=== PATIENT | female | born 1975 | race Caucasian/White ===

== ENCOUNTER 2020-07-17 16:19 | Emergency (ER) | payer OTHER, SELFPAY ==
--- NOTE | ~2020-07-17 | XR_ITS ---
EXAMINATION: XR HAND, LEFT CLINICAL INFORMATION: Trauma. Lacerations with metal weather stripper COMPARISON: None TECHNIQUE: Three views of the left hand. FINDINGS: The alignment is normal. There is no fracture, focal lesion, periosteal new bone or opaque foreign body. XR/XR hand LT min 3V IMPRESSION: No fracture, subluxation or opaque foreign body demonstrated
[2020-07-17 17:02] VITALS: BP 157/69; PULSE 96; RESP 16; TEMP 36.6; O2SAT 100; BMI 49.1
[2020-07-17] MEDS: Lidocaine HCl 2 % MPF 5 ML VIAL 10 ML SUBCUT (17:17)
[2020-07-17] MEDS: Diphth,Pertus(ACell),Tet Adult 0.5 ML SYRINGE IM (17:17)
--- NOTE | 2020-07-17 17:53 | ED.WOUNDLAC ---
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 Third being the worst with suspected tendon injury. Fourth and 5th fingers have abrasions. Patient stated that she does not have any other concerning symptoms besides a suspicion of the tendon injury to the 3rd finger. Onset (ago): hour(s) (Within the hour of arrival) Place: home Patient tetanus UTD: No Context: accidental Associated symptoms: pain and unable to move injured part Treatments prior to arrival: bandage and tourniquet Related Data Previous Rx's Medication Instructions Recorded amoxicillin-pot clavulanate 1 tab PO Q12H 10 Days #20 tab 07/17/20 [Augmentin] Allergies Allergy/AdvReac Type Severity Reaction Status Date / Time metronidazole [From FLAGYL] Allergy Unknown RASH Unverified 11/12/19 18:26 Sulfa (Sulfonamide Allergy Unknown RASH Unverified 11/12/19 18:26 Antibiotics) [SULFA (SULFONAMIDE ANTIBIOTICS)] Review of Systems Review of Systems: Constitutional: No Fever, No Chills ENT/Mouth: No Ear Pain, No Hoarseness, No sore throat Eyes: No Eye Pain, No Swelling, No Redness, No Foreign Body Cardiovascular: No Chest Pain, No SOB Respiratory: No Cough, No Dyspnea Gastrointestinal: No Nausea, No Vomiting, No Diarrhea, No abdominal Pain Genitourinary: No Dysuria, No Hematuria Musculoskeletal: positive 3rd 4th and 5th left finger pain, No Myalgias, No Joint Swelling Skin: Positive laceration to the 3rd 4th and 5th fingers, No rash Neuro: No Weakness, No Numbness, No Paresthesias, No Loss of Consciousness, No Dizziness, No Headache Psych: No Anxiety/Panic, No Depression Heme/Lymph: no easy bruising, no Lymphadenopathy Endocrine: No Polyuria, No Polydipsia Yes all other systems are reviewed and are negative PMFSH Past Medical History Attestation statement: The following information was validated with the patient. Source: old records reviewed Social History Social History Alcohol intake: never Smoked in Last 30 Days: No Use of substances other than those prescribed or required for medical reasons: No Any prior treatment program specific to substance use: No Advance Directives: No Advance Directives Information Provided: Yes Patient : No Physical Exam Vital Signs: Vital Signs: Last Vital Signs Temp 97.9 F 07/17/20 17:02 Pulse 96 07/17/20 17:02 Resp 16 07/17/20 17:02 BP 157/69 H 07/17/20 17:02 Pulse Ox 100 07/17/20 17:02 Body Mass Index 49.1 Appearance: Alert. Oriented X3. No acute distress. Eyes: Pupils equal, round and reactive to light. ENT: Pharynx normal. Neck: Normal inspection. Neck supple. CVS: Normal heart rate and rhythm. Pulses normal. Respiratory: No respiratory distress. Breath sounds normal. Abdomen: Soft and nontender. Skin: Skin warm and dry. Normal skin color. Normal skin turgor. Extremities: No lower extremity edema. Neuro: No motor deficit. No sensory deficit. Course Course Course Narrative: 45-year-old female presents with lacerations to her right 3rd 4th and 5th dorsal aspects of fingers. will order x-rays, update Tdap vaccine, irrigate and suture. Prepped and draped in sterile fashion, approximately 10 mL of blood loss. Patient tolerated procedure well. X-rays are negative for acute finding. Will treat with antibiotics Augmentin p.o.. Patient verbalized understanding of and agrees to plan of care discharge home. Consultations Consultation #1: Yuniel Time: 18:40 Procedures Laceration Laceration 1: Site: hand Side (If applicable): right Size (cm): 2 Description: linear Depth: simple, single layer, involves muscle layer and involves tendon Local Anesthetic: lidocaine 2% Amount of anesthesia used (mL): 4 Pre-repair: wound explored, irrigated extensively and extensive debridement Skin layer closed with: nylon Size (cm): 4-0 Number of sutures: 3 Technique: simple, interrupted MDM - Wound/Laceration MDM Narrative Medical decision making narrative: Tendon injury, bone injury Differential Diagnosis Differential diagnosis: Likely laceration Medical Records Attestation: I reviewed the patient's medical records. Lab Data Attestation: I reviewed the patient's lab results. Imaging Data right hand x-ray: Attestation: I personally reviewed and interpreted this imaging study as follows: Radiologist's impression: EXAMINATION: XR HAND, LEFT CLINICAL INFORMATION: Trauma. Lacerations with jig boring machine operator for metal COMPARISON: None TECHNIQUE: Three views of the left hand. FINDINGS: The alignment is normal. There is no fracture, focal lesion, periosteal new bone or opaque foreign body. XR/XR hand LT min 3V IMPRESSION: No fracture, subluxation or opaque foreign body demonstrated Discharge Plan Discharge Clinical Impression: Laceration Extensor tendon laceration of finger with open wound Qualifiers: Encounter type: initial encounter Qualified Code(s): S56.429A - Laceration of extensor muscle, fascia and tendon of unspecified finger at forearm level, initial encounter Patient Disposition: Home, Self-Care Instructions: Finger Laceration (ED), Tendon Laceration (ED) Additional Instructions: you were evaluated for lacerations to the fingers sustain from and jig boring machine operator for metal. We placed 3 sutures. You must follow-up with orthopedics or hand surgery as there is a high suspicion for tendon laceration. Please take Augmentin twice a day for the next 10 days. Use Tylenol and Motrin as needed for pain management. Please stop your Eliquis as you may need surgery. We updated your Tdap vaccine. Thank you for choosing this emergency department for evaluation. Please follow-up with primary care physician as needed. Return to the emergency department for any new, concerning, or worsening symptoms. Prescriptions: New amoxicillin-pot clavulanate [Augmentin] 875-125 mg tablet 1 tab PO Q12H 10 Days Qty: 20 RF: 0 Referrals: Windy Brice PA-C [Physician [facility]] - 2 days (Finger laceration with suspected tendon involvement) Maylin Horne [Physician] - 2 days (Finger lack with suspected tendon involvement) Interventions: ED Discharge Assessment Last Done: 07/17/20 19:00 Discharge Date/Time: 07/17/20 19:04
[2020-07-17] MEDS: Amoxicillin/Potassium Clav 875 MG TABLET PO (18:35)
== END 2020-07-17 19:04 | disposition home or self-care (01) ==
PROVIDERS: Emergency Provider Emergency Medicine; PCP Nurse Practitioner Adult Health
DX: S61.212A Laceration without foreign body of right middle finger without damage to nail, initial encounter (principal); S61.210A Laceration without foreign body of right index finger without damage to nail, initial encounter; S61.216A Laceration without foreign body of right little finger without damage to nail, initial encounter; M79.641 Pain in right hand; W29.8XXA Contact with other powered hand tools and household machinery, initial encounter; Y93.9 Activity, unspecified; Y92.009 Unspecified place in unspecified non-institutional (private) residence as the place of occurrence of the external cause; Y99.9 Unspecified external cause status; Z79.899 Other long term (current) drug therapy
CPT/HCPCS: 12001; 73130; 90471; 90715; 96360; 99284